=== PATIENT | male | born 1970 | race African-American/Black ===

== ENCOUNTER 2016-07-30 06:14 | Observation (INO) | payer MEDICAID, OTHER ==
[~2016-07-30] VITALS: Ht 182.9 cm; Wt 90.7 kg
[2016-07-30] MEDS ORDERED: SODIUM CHLORIDE 0.9% 1,000 ML IVB ONE (07:14)
[2016-07-30] MEDS ORDERED: LORazepam 2MG/ML-1ML VIAL IV ONE (07:15)
[2016-07-30 08:10] LABS: Basophils # (auto) 0 uL; Basophils % (auto) 0.4 % (0.0-2.0); DEFINITIVE VIEW TRANSMISSION; Eosinophils # (auto) 0.1 uL; Eosinophils % (auto) 2.5 % (0.0-7.0); Hemoglobin 13.8 g/dL (13.5-17.5); Lymphocytes # (auto) 1.8 uL; Lymphocytes % (auto) 36.2 % (10.0-50.0); Mean Corpuscular Hemoglobin 25.8 pg (28.0-32.0); Mean Corpuscular Hgb Conc. 32.1 g/dL (32.0-36.0); Mean Corpuscular Volume 80.3 fL (80.0-100.0); Mean Platelet Volume 7.9 fL (7.4-10.4); Monocytes # (auto) 0.5 uL; Neutrophils # (auto) 2.5 uL; Neutrophils % (auto) 49.9 % (37.0-80.0); Platelet Count (auto) 198 10^3/uL (140-450); Red Cell Distribution Width 17.3 % (11.6-16.0); White Blood Cell 4.9 10^3/uL (4.4-10.8)
[2016-07-30 08:19] LABS: Albumin 3.2 g/dL (3.4-5.0); BUN/Creatinine Ratio 11.7; Bilirubin, Total 0.3 mg/dL (0.2-1.0); Calcium 8.5 mg/dL (8.5-10.1); Total Protein 7.2 g/dL (6.4-8.2)
[2016-07-30 08:59] VITALS: BP 147/90
[2016-07-30] MEDS ORDERED: LEVETIRACETAM 500 MG/5ML ORAL SOLN UD GT ONE (09:00)
[2016-07-30] MEDS ORDERED: LEVETIRACETAM INJ 1,000 MG in SODIUM CHL 0.9% 100 ML IV ONE (09:00)
[2016-07-30 10:10] LABS: Partial Thromboplastin Time 38.4 sec (22.64-33.71)
[2016-07-30 10:11] LABS: INR 1.78 (0.9-1.15); Prothrombin Time 19.2 sec (9.37-12.3)
[2016-07-30] MEDS ORDERED: WARF5TAB GT (10:39)
[2016-07-30] MEDS ORDERED: ESCI20TA GT (10:39)
[2016-07-30] MEDS ORDERED: LEVE100012 GT (10:39)
[2016-07-30] MEDS ORDERED: GABA-339 GT (10:39)
[2016-07-30] MEDS ORDERED: LABE200T18 GT (10:39)
[2016-07-30] MEDS ORDERED: DEXT20CA GT (10:44)
[2016-07-30] MEDS ORDERED: LACO10SO GT (10:44)
[2016-07-30] MEDS ORDERED: AMLO10TA2 GT (10:44)
== END 2016-07-30 11:39 | disposition home or self-care (01) | DRG 53 ==
LOC: ER 06:14 → OVERFLOW 07:15
PROVIDERS: ADMIT Emergency Medicine; ATTEND Emergency Medicine
DX: R56.9 Unspecified convulsions (principal); I10 Essential (primary) hypertension; Z86.73 Personal history of transient ischemic attack (TIA), and cerebral infarction without residual deficits; F17.210 Nicotine dependence, cigarettes, uncomplicated
CPT/HCPCS: 36415; 70450; 80053; 85025; 85610; 85730; 96361; 96374; 96375; 99285; G0378; J1953; J2060

== ENCOUNTER 2017-03-29 20:00 | Emergency (ER) | payer MEDICAID ==
[~2017-03-29] VITALS: Ht 182.9 cm; Wt 90.7 kg
[~2017-03-29 20:00] MED LIST: AMLO10TA2 GT; DEXT20CA GT; ESCI20TA GT; GABA-339 GT; LABE200T18 GT; LACO10SO GT; LEVE100012 GT; WARF5TAB GT
[2017-03-29 21:05] LABS: Basophils # (auto) 0 uL; Basophils % (auto) 0.4 % (0.0-2.0); Eosinophils # (auto) 0.1 uL; Eosinophils % (auto) 1.2 % (0.0-7.0); Hematocrit 42.5 % (41.0-53.0); Hemoglobin 13.9 g/dL (13.5-17.5); Lymphocytes # (auto) 1.3 uL; Lymphocytes % (auto) 21.3 % (10.0-50.0); Mean Corpuscular Hemoglobin 27.1 pg (28.0-32.0); Mean Corpuscular Hgb Conc. 32.6 g/dL (32.0-36.0); Mean Corpuscular Volume 83.3 fL (80.0-100.0); Monocytes # (auto) 0.9 uL; Monocytes % (auto) 14.6 % (0.0-12.0); Neutrophils # (auto) 3.7 uL; Neutrophils % (auto) 62.5 % (37.0-80.0); Nucleated Red Blood Cells % 0.2 %; Platelet Count (auto) 191 10^3/uL (140-450); Red Blood Cells 5.11 10^6/uL (4.5-5.90); Red Cell Distribution Width 14.7 % (11.8-14.3); White Blood Cell 5.9 10^3/uL (4.4-10.8)
[2017-03-29 21:27] LABS: INR 1.33 (0.9-1.15); Partial Thromboplastin Time 37.6 sec (22.64-33.71); Prothrombin Time 14.5 sec (9.37-12.3)
[2017-03-29 21:43] LABS: Alanine Aminotransferase 16 U/L (16-61); Albumin 3.3 g/dL (3.4-5.0); Alkaline Phosphatase 100 U/L (45-117); Amylase 96 U/L (25-115); Anion Gap 6 (5-15); Aspartate Aminotransferase 10 U/L (15-37); BUN/Creatinine Ratio 19.7; Bilirubin, Total 0.5 mg/dL (0.2-1.0); Blood Urea Nitrogen 13 mg/dL (7-18); Calcium 8.5 mg/dL (8.5-10.1); Carbon Dioxide 29 mmol/L (21-32); Chloride 105 mmol/L (98-107); GFR African American 166 mL/min; GFR Non-African American 137 mL/min; Glucose 96 mg/dL (74-106); Lipase 173 U/L (73-393); Magnesium 2.6 mg/dL (1.6-2.6); Potassium 3.8 mmol/L (3.5-5.1); Sodium 140 mmol/L (136-145)
[2017-03-30 05:32] VITALS: BP 153/102
[2017-03-30 05:58] LABS: Urine Bacteria NONE SEEN /hpf (None Seen); Urine Blood TRACE /uL (Negative); Urine Mucus FEW (None Seen); Urine Specific Gravity 1.028 (1.001-1.035); Urine WBC 2 /hpf (0 - 3)
[2017-03-30] MEDS ORDERED: ONDANSETRON HCL 4 MG/2 ML VIAL IV ONE (06:00)
[2017-03-30] MEDS ORDERED: NALBUPHINE HCL 10 MG/1ml INJECTION IV ONE (06:00)
== END 2017-03-30 06:33 | disposition home or self-care (01) ==
LOC: EDBD 20:00 → ER 20:10
DX: N20.0 Calculus of kidney (principal); I10 Essential (primary) hypertension; F17.210 Nicotine dependence, cigarettes, uncomplicated; Z79.01 Long term (current) use of anticoagulants; Z79.899 Other long term (current) drug therapy; Z86.73 Personal history of transient ischemic attack (TIA), and cerebral infarction without residual deficits
CPT/HCPCS: 36415; 74176; 80053; 81001; 82150; 83605; 83690; 83735; 84484; 85025; 85610; 85730; 93005; 94761; 96374; 96375; 99285; J2300; J2405

== ENCOUNTER 2025-02-25 11:16 | Emergency (ER) | payer MEDICAID ==
[~2025-02-25] VITALS: Ht 167.6 cm; Wt 70.0 kg
[~2025-02-25 11:16] MED LIST changes: -AMLO10TA2 GT; +AMLO1TAB23 GT; -LABE200T18 GT; +LABE200T33 GT; -LACO10SO GT; +LACO10SO3 GT
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
[2025-02-25] MEDS ORDERED: BACDST PO (13:36)
[2025-02-25 16:00] VITALS: PULSE 91; RESP 20; TEMP 98.2; O2SAT 97
[2025-02-25 16:02] VITALS: BP 110/89; PULSE 84; RESP 20
[2025-02-25] MEDS: ONDANSETRON ODT 4 MG TAB PO ONE (16:02)
[2025-02-25] MEDS: MORPHINE SULFATE INJ 2 MG/ml SYRG IM ONE (16:02)
== END 2025-02-25 16:26 | disposition home or self-care (01) ==
LOC: ER 11:16
DX: S22.32XA Fracture of one rib, left side, initial encounter for closed fracture (principal); S22.31XA Fracture of one rib, right side, initial encounter for closed fracture; N39.0 Urinary tract infection, site not specified; F17.210 Nicotine dependence, cigarettes, uncomplicated; I10 Essential (primary) hypertension; Z86.73 Personal history of transient ischemic attack (TIA), and cerebral infarction without residual deficits; Z79.899 Other long term (current) drug therapy; W18.30XA Fall on same level, unspecified, initial encounter; Y93.89 Activity, other specified; Y92.89 Other specified places as the place of occurrence of the external cause; Y99.8 Other external cause status
CPT/HCPCS: 71111; 96372; 99283; J2270; Q0162